=== PATIENT | female | born 2000 | race Hispanic/Latino ===

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

== ENCOUNTER 2021-03-02 16:33 | Emergency (ER) | payer OTHER ==
[~2021-03-02] VITALS: Ht 157.5 cm; Wt 79.9 kg
[2021-03-02 18:46] VITALS: BP 110/60
== END 2021-03-02 19:02 | disposition home or self-care (01) ==
LOC: M ED 16:33
DX: J06.9 Acute upper respiratory infection, unspecified (principal); Z20.822 Contact with and (suspected) exposure to COVID-19; F17.290 Nicotine dependence, other tobacco product, uncomplicated
CPT/HCPCS: 99283; U0003

== ENCOUNTER 2021-03-17 22:49 | Emergency (ER) | payer OTHER ==
[~2021-03-17] VITALS: Ht 167.6 cm; Wt 79.9 kg
[2021-03-17 22:50] VITALS: BP 107/76
== END 2021-03-17 22:54 | disposition left against medical advice (07) ==
LOC: M ED 22:49
DX: Z53.21 Procedure and treatment not carried out due to patient leaving prior to being seen by health care provider (principal)